=== PATIENT | male | born 1960 | race Caucasian/White ===

== ENCOUNTER 2023-07-21 14:08 | Inpatient (IN) | payer OTHER, MEDICAID ==
[~2023-07-21] VITALS: Ht 180.3 cm; Wt 82.1 kg
[2023-07-21 16:17] LABS: BASOPHILS % (AUTO) 0.2 % (0.0-2.0); EOSINOPHILS # (AUTO) 0.3 K/uL (0.0-0.7); EOSINOPHILS % (AUTO) 2.4 % (0.0-6.0); HEMATOCRIT 39 % (39-51); HEMOGLOBIN 13.4 g/dL (13.5-17.5); LYMPHOCYTES # (AUTO) 2.5 K/uL (0.8-4.8); LYMPHOCYTES % (AUTO) 17.6 % (20.0-44.0); MEAN CORPUSCULAR HEMOGLOBIN 35 PG (26.0-33.0); MEAN CORPUSCULAR HGB CONC 35 g/dl (31.0-36.0); MEAN CORPUSCULAR VOLUME 102 fL (80-96); MONOCYTES # (AUTO) 0.6 K/uL (0.1-1.30); MONOCYTES % (AUTO) 4.6 % (2.0-12.0); NEUTROPHILS # (AUTO) 10.5 K/uL (1.8-8.9); NEUTROPHILS % (AUTO) 75.2 % (43.0-81.0); PLATELET COUNT (AUTO) 223 K/uL (150-450); RED BLOOD CELL COUNT(AUTO) 3.83 MIL/uL (4.5-6.0); RED CELL DISTRIBUTION WIDTH 13.4 % (11.5-15.0)
[2023-07-21] MEDS ORDERED: MORPHINE SULFATE INJ 4 MG/ML DISP.SYRIN ONE (16:21)
[2023-07-21] MEDS: MORPHINE SULFATE INJ 2 MG/ML DISP.SYRIN IV ONE (16:24)
[2023-07-21 16:25] LABS: CALCIUM, SERUM 9.9 mg/dL (8.5-10.1); POTASSIUM 4.3 mmol/L (3.5-5.1)
[2023-07-21 17:00] LABS: INR 0.98 (0.91-1.10); PARTIAL THROMBOPLASTIN TIME 27.2 SEC (24.3-34.3); PROTHROMBIN TIME 10.4 SECS (9.2-11.1)
[2023-07-21] MEDS ORDERED: Z GUARD REMEDY 4 OZ OINT TP PRN (17:00)
[2023-07-21] MEDS ORDERED: MAGNESIUM HYDROXIDE 30 ML UDC PO PRN (17:00)
[2023-07-21] MEDS ORDERED: MAG HYDROX/AL HYDROX/SIMETH 30 ML UDC PO PRN (17:00)
[2023-07-21] MEDS ORDERED: ONDANSETRON HCL/PF 4 MG/2 ML VIAL IVP PRN (17:00)
[2023-07-21] MEDS ORDERED: NICOTINE PATCH TD (17:28)
[2023-07-21] MEDS ORDERED: MAGN400O6 PO (17:28)
[2023-07-21] MEDS ORDERED: GABA600T PO (17:28)
[2023-07-21] MEDS ORDERED: LOPE2CAP40 PO (17:28)
[2023-07-21] MEDS ORDERED: SERT100T12 PO (17:28)
[2023-07-21] MEDS ORDERED: MIRT45TA83 PO (17:28)
[2023-07-21] MEDS ORDERED: KETOCONAZOLE SHAMPOO TP (17:28)
[2023-07-21] MEDS ORDERED: CHOL200059 PO (17:28)
[2023-07-21] MEDS ORDERED: ACET-73 PO (17:28)
[2023-07-21] MEDS ORDERED: ONDA4TAB11 PO (17:28)
[2023-07-21] MEDS ORDERED: PRIM50TA27 PO (17:28)
[2023-07-21] MEDS ORDERED: NICO-726 PO (17:28)
[2023-07-21] MEDS ORDERED: CALC500T88 PO (17:28)
[2023-07-21] MEDS ORDERED: TRAZ-257 PO (17:28)
[2023-07-21] MEDS ORDERED: NAPR-1009 PO (17:28)
[2023-07-21] MEDS ORDERED: PRAZ1CAP5 PO (17:28)
[2023-07-21] MEDS ORDERED: CYCL10TA9 PO (17:28)
[2023-07-21] MEDS ORDERED: OMEG1CAP PO (17:28)
[2023-07-21] MEDS ORDERED: KETO15CR2 TP (17:28)
[2023-07-21] MEDS ORDERED: CYAN-51 PO (17:28)
[2023-07-21] MEDS ORDERED: HYDR28CR67 TP (17:28)
[2023-07-21] MEDS ORDERED: GABA300C PO (17:28)
[2023-07-21] MEDS ORDERED: QUET100T PO (17:28)
[2023-07-21] MEDS ORDERED: DIPH25CA51 PO (17:28)
[2023-07-21] MEDS ORDERED: LIDO700A30 TP (17:28)
[2023-07-21 18:35] LABS: APPEARANCE,URINE SLIGHTLY CLOUDY (CLEAR); BILIRUBIN,URINE NEGATIVE (NEGATIVE); BLOOD, URINE NEGATIVE Ery/uL (NEGATIVE); COLOR,URINE YELLOW (YELLOW); KETONES,URINE NEGATIVE (NEGATIVE); LEUKOCYTE ESTERASE ,URINE NEGATIVE (NEGATIVE); NITRITE, URINE NEGATIVE (NEGATIVE); PH,URINE 7.5 (5.0-8.0); PROTEIN,URINE NEGATIVE (NEGATIVE); UGLUCOSE NEGATIVE (NEGATIVE); UROBILINOGEN,URINE 0.2 EU/dL (0.2)
[2023-07-21 19:49] LABS: ADD URINE CULTURE NO; BACTERIA,URINE None seen /HPF (None Seen); RBC,URINE 0-2 /HPF (0-2); SQUAMOUS EPITHELIAL CELL,UR 0-2 /HPF (None Seen); URINE AMORPHOUS PHOSPHATES Moderate /HPF (None Seen); WBC,URINE 0-2 /HPF (0-3)
[2023-07-21 20:00] VITALS: BP 130/70; TEMP 98.1; O2SAT 98
[2023-07-21] MEDS: MORPHINE SULFATE INJ 2 MG/ML DISP.SYRIN IV PRN (20:22)
[2023-07-21] MEDS: CEFAZOLIN 1 GM in IV D5W 50 ML IV SCH (20:45)
[2023-07-21] MEDS: IV NS 0.9% 1,000 ML IV PRN (20:45)
[2023-07-21] MEDS: ZOLPIDEM TARTRATE 5 MG TABLET PO PRN (22:38)
[2023-07-22 07:07] LABS: BASOPHILS % (AUTO) 0.4 % (0.0-2.0); EOSINOPHILS # (AUTO) 0.5 K/uL (0.0-0.7); EOSINOPHILS % (AUTO) 4.7 % (0.0-6.0); HEMATOCRIT 36 % (39-51); HEMOGLOBIN 12.5 g/dL (13.5-17.5); LYMPHOCYTES # (AUTO) 2.3 K/uL (0.8-4.8); LYMPHOCYTES % (AUTO) 23.2 % (20.0-44.0); MEAN CORPUSCULAR HEMOGLOBIN 35 PG (26.0-33.0); MEAN CORPUSCULAR HGB CONC 35 g/dl (31.0-36.0); MEAN CORPUSCULAR VOLUME 101 fL (80-96); MONOCYTES # (AUTO) 0.7 K/uL (0.1-1.30); MONOCYTES % (AUTO) 7.1 % (2.0-12.0); NEUTROPHILS # (AUTO) 6.5 K/uL (1.8-8.9); NEUTROPHILS % (AUTO) 64.6 % (43.0-81.0); PLATELET COUNT (AUTO) 189 K/uL (150-450); RED BLOOD CELL COUNT(AUTO) 3.52 MIL/uL (4.5-6.0); RED CELL DISTRIBUTION WIDTH 13.1 % (11.5-15.0)
[2023-07-22 07:44] LABS: CALCIUM, SERUM 8.9 mg/dL (8.5-10.1); CREATININE 0.9 mg/dL (0.6-1.3); MAGNESIUM 1.5 mg/dL (1.8-2.4); PHOSPHORUS 3.7 mg/dL (2.5-4.9); POTASSIUM 3.7 mmol/L (3.5-5.1)
[2023-07-22 08:00] VITALS: BP 124/74; TEMP 97.9; O2SAT 95
[2023-07-22 08:32] LABS: IRON, SERUM 58 ug/dl (50-175); TOTAL IRON BINDING CAPACITY 205 ug/dl (250-450)
[2023-07-22 08:45] LABS: FERRITIN 361 ng/mL (8-388)
[2023-07-22] MEDS: Magnesium 1GM/D5W 100ML PREMIX 100 ML IV SCH (08:50)
[2023-07-22] MEDS ORDERED: ANESTHESIA TRAY IN PYXIS 1 EA TRAY MC ONE (12:38)
[2023-07-22] MEDS ORDERED: BUPIVACAINE 0.25% 75 MG/30 ML VIAL ONE (12:38)
[2023-07-22 16:00] VITALS: BP 117/67; TEMP 98.8; O2SAT 95
[2023-07-22] MEDS ORDERED: FENTANYL PF 100MCG/2ML AMPUL ONE (17:36)
[2023-07-22] MEDS ORDERED: KETAMINE HCL (500MG/10ML) 50 MG/ML VIAL ONE (17:36)
[2023-07-22] MEDS ORDERED: MIDAZOLAM HCL 2 MG/2ML VIAL ONE (17:36)
[2023-07-22] MEDS ORDERED: FAMOTIDINE/PF INJ 20 MG/2 ML VIAL IV ONE (17:37)
[2023-07-22] MEDS ORDERED: ROPIVACAINE HCL 0.5% 5 MG/ML 30ML VIAL ONE ×2 (18:23→19:05)
[2023-07-22 20:00] VITALS: BP 119/64; TEMP 98.8; O2SAT 95
[2023-07-22 20:31] LABS: HEMOGLOBIN 12.1 g/dL (13.5-17.5)
[2023-07-23] VITALS: BP 119/64; TEMP 98.8; O2SAT 95
[2023-07-23] MEDS: ANCEF 1 GM/50 ML D5W IV SCH (02:20)
[2023-07-23 04:00] VITALS: BP 111/69; TEMP 98.8; O2SAT 96
[2023-07-23 06:22] LABS: HEMATOCRIT 32 % (39-51); HEMOGLOBIN 11.3 g/dL (13.5-17.5); LYMPHOCYTES # (AUTO) 1.7 K/uL (0.8-4.8); MEAN CORPUSCULAR HEMOGLOBIN 35 PG (26.0-33.0); MEAN CORPUSCULAR HGB CONC 35 g/dl (31.0-36.0); MEAN CORPUSCULAR VOLUME 99 fL (80-96); MONOCYTES # (AUTO) 0.8 K/uL (0.1-1.30); MONOCYTES % (AUTO) 5.9 % (2.0-12.0); NEUTROPHILS # (AUTO) 11.4 K/uL (1.8-8.9); NEUTROPHILS % (AUTO) 82.1 % (43.0-81.0); PLATELET COUNT (AUTO) 204 K/uL (150-450); RED BLOOD CELL COUNT(AUTO) 3.24 MIL/uL (4.5-6.0); RED CELL DISTRIBUTION WIDTH 12.5 % (11.5-15.0); WHITE BLOOD COUNT (AUTO) 13.9 K/uL (4.3-11.0)
[2023-07-23 06:34] LABS: CREATININE 0.8 mg/dL (0.6-1.3)
[2023-07-23 08:00] VITALS: BP 100/71; TEMP 100; O2SAT 98
[2023-07-23] MEDS: ENOXAPARIN SODIUM 40 MG/0.4 ML DISP.SYRIN SQ SCH (08:52)
[2023-07-23] MEDS ORDERED: KETOCONAZOLE 2% CREAM 15 GM TUBE TP PRN (10:00)
[2023-07-23] MEDS ORDERED: CYCLOBENZAPRINE 10 MG TABLET PO PRN (10:00)
[2023-07-23] MEDS ORDERED: LIDOCAINE 5% (PATCH) 1 EA PATCH TP PRN (10:00)
[2023-07-23] MEDS ORDERED: HYDROCORTISONE 1% CREAM 30 GM TUBE TP PRN (10:00)
[2023-07-23] MEDS ORDERED: CALCIUM CARBONATE (1250) 500 MG TABLET PO PRN (10:00)
[2023-07-23 12:00] VITALS: BP 110/47; TEMP 98.6; O2SAT 96
[2023-07-23] MEDS: ACETAMINOPHEN 325 MG TABLET PO PRN (13:01)
[2023-07-23 16:00] VITALS: BP 110/68; TEMP 99.7; O2SAT 98
[2023-07-23] MEDS: GABAPENTIN 300 MG CAPSULE PO SCH (16:19)
[2023-07-23] MEDS ORDERED: Medication Not On Formulary EA (Omega-3 Fatty Acids/Fish Oil (Fish Oil 1,000 Mg Capsule) PO SCH (17:00)
[2023-07-23 20:20] VITALS: BP 124/67; TEMP 97.9; O2SAT 95
[2023-07-23] MEDS: GABAPENTIN 400 MG CAPSULE PO SCH (21:43)
[2023-07-23] MEDS: PRIMIDONE 50 MG TABLET PO SCH (21:43)
[2023-07-23] MEDS: PRAZOSIN HCL 1 MG CAPSULE PO SCH (21:44)
[2023-07-23] MEDS: TRAZODONE 50 MG TABLET PO SCH (21:44)
[2023-07-23] MEDS: QUETIAPINE FUMARATE 100 MG TABLET PO SCH (21:45)
[2023-07-23] MEDS: MIRTAZAPINE 45 MG TABLET PO SCH (21:45)
[2023-07-24 06:36] LABS: BASOPHILS % (AUTO) 0.5 % (0.0-2.0); EOSINOPHILS # (AUTO) 0.1 K/uL (0.0-0.7); EOSINOPHILS % (AUTO) 1.5 % (0.0-6.0); HEMATOCRIT 30 % (39-51); HEMOGLOBIN 10.6 g/dL (13.5-17.5); LYMPHOCYTES # (AUTO) 1.8 K/uL (0.8-4.8); LYMPHOCYTES % (AUTO) 22.2 % (20.0-44.0); MEAN CORPUSCULAR HEMOGLOBIN 36 PG (26.0-33.0); MEAN CORPUSCULAR HGB CONC 36 g/dl (31.0-36.0); MEAN CORPUSCULAR VOLUME 100 fL (80-96); MONOCYTES # (AUTO) 0.7 K/uL (0.1-1.30); MONOCYTES % (AUTO) 9.1 % (2.0-12.0); NEUTROPHILS # (AUTO) 5.5 K/uL (1.8-8.9); NEUTROPHILS % (AUTO) 66.7 % (43.0-81.0); PLATELET COUNT (AUTO) 170 K/uL (150-450); RED BLOOD CELL COUNT(AUTO) 2.96 MIL/uL (4.5-6.0); WHITE BLOOD COUNT (AUTO) 8.2 K/uL (4.3-11.0)
[2023-07-24 06:58] LABS: CALCIUM, SERUM 9.1 mg/dL (8.5-10.1); CREATININE 0.8 mg/dL (0.6-1.3); POTASSIUM 3.5 mmol/L (3.5-5.1)
[2023-07-24 08:00] VITALS: BP 114/71; TEMP 99.1; O2SAT 99
[2023-07-24] MEDS: CHOLECALCIFEROL 1,000 UNIT TABLET (VIT D3) PO SCH (08:46)
[2023-07-24] MEDS: SERTRALINE HCL 50 MG TABLET PO SCH (08:46)
[2023-07-24] MEDS: CYANOCOBALAMIN 500 MCG TABLET PO SCH (08:46)
[2023-07-24 16:00] VITALS: BP 120/70; TEMP 100.6; O2SAT 97
[2023-07-25 07:52] LABS: CALCIUM, SERUM 8.8 mg/dL (8.5-10.1); CREATININE 0.7 mg/dL (0.6-1.3); POTASSIUM 3.7 mmol/L (3.5-5.1)
[2023-07-25 07:53] LABS: BASOPHILS % (AUTO) 0.3 % (0.0-2.0); EOSINOPHILS # (AUTO) 0.3 K/uL (0.0-0.7); EOSINOPHILS % (AUTO) 4.1 % (0.0-6.0); HEMATOCRIT 29 % (39-51); HEMOGLOBIN 10.3 g/dL (13.5-17.5); LYMPHOCYTES # (AUTO) 1.8 K/uL (0.8-4.8); LYMPHOCYTES % (AUTO) 22.3 % (20.0-44.0); MEAN CORPUSCULAR HEMOGLOBIN 35 PG (26.0-33.0); MEAN CORPUSCULAR HGB CONC 35 g/dl (31.0-36.0); MEAN CORPUSCULAR VOLUME 100 fL (80-96); MONOCYTES # (AUTO) 0.8 K/uL (0.1-1.30); MONOCYTES % (AUTO) 9.2 % (2.0-12.0); NEUTROPHILS # (AUTO) 5.3 K/uL (1.8-8.9); NEUTROPHILS % (AUTO) 64.1 % (43.0-81.0); PLATELET COUNT (AUTO) 180 K/uL (150-450); RED BLOOD CELL COUNT(AUTO) 2.92 MIL/uL (4.5-6.0); RED CELL DISTRIBUTION WIDTH 12.9 % (11.5-15.0); WHITE BLOOD COUNT (AUTO) 8.2 K/uL (4.3-11.0)
[2023-07-25 08:00] VITALS: BP 113/69; TEMP 98.4; O2SAT 95
[2023-07-25 16:00] VITALS: BP 116/71; TEMP 100.2; O2SAT 96
[2023-07-25 20:00] VITALS: BP 127/71; TEMP 98.4; O2SAT 97
[2023-07-26 06:43] LABS: BASOPHILS % (AUTO) 0.4 % (0.0-2.0); EOSINOPHILS # (AUTO) 0.5 K/uL (0.0-0.7); EOSINOPHILS % (AUTO) 6.1 % (0.0-6.0); HEMATOCRIT 27 % (39-51); HEMOGLOBIN 9.4 g/dL (13.5-17.5); LYMPHOCYTES # (AUTO) 2.2 K/uL (0.8-4.8); LYMPHOCYTES % (AUTO) 27.6 % (20.0-44.0); MEAN CORPUSCULAR HEMOGLOBIN 36 PG (26.0-33.0); MEAN CORPUSCULAR HGB CONC 36 g/dl (31.0-36.0); MEAN CORPUSCULAR VOLUME 100 fL (80-96); MONOCYTES # (AUTO) 0.7 K/uL (0.1-1.30); MONOCYTES % (AUTO) 9.1 % (2.0-12.0); NEUTROPHILS # (AUTO) 4.5 K/uL (1.8-8.9); NEUTROPHILS % (AUTO) 56.8 % (43.0-81.0); PLATELET COUNT (AUTO) 200 K/uL (150-450); RED BLOOD CELL COUNT(AUTO) 2.65 MIL/uL (4.5-6.0); RED CELL DISTRIBUTION WIDTH 12.9 % (11.5-15.0); WHITE BLOOD COUNT (AUTO) 7.9 K/uL (4.3-11.0)
[2023-07-26 07:10] LABS: CALCIUM, SERUM 8.7 mg/dL (8.5-10.1); CREATININE 0.7 mg/dL (0.6-1.3); POTASSIUM 3.7 mmol/L (3.5-5.1)
[2023-07-26 08:32] VITALS: BP 113/65; TEMP 98.1; O2SAT 94
[2023-07-26] MEDS ORDERED: HYDR-3972 PO (12:31)
[2023-07-26] MEDS ORDERED: RIVA15TA PO (12:31)
== END 2023-07-26 17:30 | disposition home health service (06) | DRG 482 ==
LOC: ER 14:10 → MED 18:56
PROVIDERS: ADMIT Nurse Practitioner Acute Care; ATTEND Nurse Practitioner Acute Care
PROC: 0QS606Z Reposition Right Upper Femur with Intramedullary Internal Fixation Device, Open Approach (ICD-10-PCS; principal; 2023-07-22)
DX: S72.141A Displaced intertrochanteric fracture of right femur, initial encounter for closed fracture (principal); W01.0XXA Fall on same level from slipping, tripping and stumbling without subsequent striking against object, initial encounter; E83.42 Hypomagnesemia; D72.829 Elevated white blood cell count, unspecified; Y92.9 Unspecified place or not applicable; Z98.890 Other specified postprocedural states; Z88.5 Allergy status to narcotic agent; M19.90 Unspecified osteoarthritis, unspecified site; Z87.891 Personal history of nicotine dependence; S09.90XA Unspecified injury of head, initial encounter; F43.10 Post-traumatic stress disorder, unspecified; F41.9 Anxiety disorder, unspecified; D64.9 Anemia, unspecified; R25.1 Tremor, unspecified; Z96.82 Presence of neurostimulator; R26.9 Unspecified abnormalities of gait and mobility; Z79.899 Other long term (current) drug therapy
CPT/HCPCS: 36415; 71045-TC; 73501; 73502; 73700-TC; 80048-TC; 81001; 82550-TC; 82728-TC; 83540-TC; 83735-TC; 84100-TC; 85025-TC; 85027-TC; 85730-TC; 86850-TC; 93307-TC; 97110-TC; 97112-TC; 97530-TC; A4223; A6209; C1713; G0378; J0690; J1100; J1650; J2250; J2270; J2405; J2704; J2765; J2795; J3010; J3475; J3490; J7030; J7060